=== PATIENT | male | born 2000 | race Hispanic/Latino ===

== ENCOUNTER 2022-04-11 03:29 | Emergency (ER) | payer OTHER, SELFPAY ==
[2022-04-11 04:13] LABS: Absolute Lymphocytes (CBC) 1.5 K/uL (0.7-4.9); Hematocrit 44.8 % (39.6-49.0); Lymphocytes % 14.7 % (15.3-44.8); MCV 87.7 fL (80-100); MPV 9.4 fL (7.6-11.3); RBC Red Blood Cell Count 5.11 M/uL (4.33-5.43)
[2022-04-11 04:20] LABS: Potassium 4.1 mmol/L (3.5-5.1)
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
[2022-04-11 05:37] VITALS: O2SAT 99
[2022-04-11 05:38] VITALS: TEMP 98.1
[2022-04-11 05:39] VITALS: BP 132/74
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
--- NOTE | 2022-04-11 11:07 | RAD REPORT ---
EXAM DESCRIPTION: RAD - Femur Left - 04/11/2022 4:33 am CLINICAL HISTORY: The patient is 21 years old and is Male; PAIN TECHNIQUE: Two views of the left femur. COMPARISON: No relevant prior studies available. FINDINGS: Bones/joints: No acute fracture visualized. No dislocation. Soft tissues: Anterior soft tissue swelling, suprapatellar. IMPRESSION: Anterior soft tissue swelling, suprapatellar. Electronically signed by: Herminia Wolfe MD 04/11/2022 4:52 AM MICROFILM TECHNICIAN Due to temporary technical issues with the PACS/Fluency reporting system, reports are being signed by the in house radiologists without review as a courtesy to insure prompt reporting. The interpreting radiologist is fully responsible for the content of the report.
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
== END 2022-04-11 05:28 | disposition home or self-care (01) ==
LOC: ER 03:29
DX: S02.2XXA Fracture of nasal bones, initial encounter for closed fracture (principal); S83.92XA Sprain of unspecified site of left knee, initial encounter; V49.40XA Driver injured in collision with unspecified motor vehicles in traffic accident, initial encounter
CPT/HCPCS: 85025; 80048; 36415; 82565; 70450; 72125; 71260; 70486; 76377; 74177; 73562; 73552; 73590; 99284; Q9967

== ENCOUNTER 2022-09-28 13:35 | Emergency (ER) | payer SELFPAY ==
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
[2022-09-28] MEDS ORDERED: TDAP (DIPHTH,PERTUSS(ACELL),TET VAC) 0.5 ML VIAL IMVAC ONE (14:58)
[2022-09-28 15:09] VITALS: BP 128/61; TEMP 98.2; O2SAT 100
== END 2022-09-28 15:03 | disposition home or self-care (01) ==
LOC: ER 13:35
DX: S00.81XA Abrasion of other part of head, initial encounter (principal); S00.411A Abrasion of right ear, initial encounter; Z23 Encounter for immunization
CPT/HCPCS: 70450; 90471; 99284